=== PATIENT | female | born 1975 | race Caucasian/White ===

== ENCOUNTER 2022-08-01 04:14 | Day surgery (SDC) | payer OTHER ==
[2022-07-07 10:41] VITALS: BMI 25.7
[~2022-08-01 04:14] MED LIST: ACETAMINOPHEN 500 MG TABLET (FP) PO PRN; BUPIVACAINE HCL/PF 0.75% 10 ML VIAL NR ONE; LIDOCAINE 1% P/F 10 MG/ML VIAL INF ONE
[2022-08-01] MEDS ORDERED: LIDOCAINE HCL/PF 1% SDV 5ML VIAL ONE (07:25)
[2022-08-01] MEDS ORDERED: BUPIVACAINE HCL/PF 0.75% 10 ML VIAL ONE (07:25)
[2022-08-01] MEDS ORDERED: ACETAMINOPHEN 500 MG TABLET (FP) PO PRN (08:38)
[2022-08-01] MEDS ORDERED: BUPIVACAINE HCL/PF 0.75% 10 ML VIAL NR ONE ×2 (12:38→12:42)
[2022-08-01] MEDS ORDERED: LIDOCAINE 1% P/F 10 MG/ML VIAL INF ONE (12:38)
[2022-08-01 14:32] VITALS: RESP 18
[2022-08-01 14:42] VITALS: BP 97/67; PULSE 68; TEMP 98
== END 2022-08-01 14:10 | disposition home or self-care (01) ==
LOC: JASU-SURG 04:14
PROVIDERS: ATTEND Pain Medicine Pain Medicine
PROC: 3E0T33Z Introduction of Anti-inflammatory into Peripheral Nerves and Plexi, Percutaneous Approach (ICD-10-PCS; 2022-08-01)
PROC: 3E0T3BZ Introduction of Anesthetic Agent into Peripheral Nerves and Plexi, Percutaneous Approach (ICD-10-PCS; principal; 2022-08-01 13:30)
DX: M47.816 Spondylosis without myelopathy or radiculopathy, lumbar region (principal)
CPT/HCPCS: 76000-TC-FY; 81025